=== PATIENT | female | born 1990 | race Caucasian/White ===

== ENCOUNTER 2020-05-31 16:56 | Inpatient (IN) | payer OTHER, SELFPAY ==
[2020-05-31] VITALS (42 sets, daily range): BP systolic 101–120; BP diastolic 66–95; PULSE 67–213; RESP 14–20; TEMP 36.5–36.8; O2SAT 97–100; BMI 37.7
[2020-05-31] MEDS: LACTATED RINGERS 1,000 ML 125 ML IV CONT (17:25)
--- NOTE | 2020-05-31 17:26 | LDADM ---
This patient, Yudelka Guy, was admitted to [facility] on 05/31/20 at 16:56. Plans for repeat section, pain management and were discussed with patient. Patient/family oriented to hospital policies and general routines including ID bracelet, bed and alarms, visiting hours, pain management, procedures, bathroom and other care routines, personal items, smoking policy, room service/diet and guest tray routines, infant security routines, and visiting hours. Patient/Family are encouraged to report perceived risks to care and to ask questions if they do not understand what they are told or what they should do. See OBIX for further documentation.
[2020-05-31 17:36] LABS: Basophils Percent Auto 0.3 % (0.2-1.2); Eosinophils Absolute Auto 0.2 K/mm3 (0-0.3); Hematocrit 36.6 % (37.0-47.0); Hemoglobin 12.2 g/dL (12.0-15.0); Immature Granulocyte Absolute 0.16 K/mm3 (0.00-0.031); Immature Granulocyte Percent A 1.8 % (0-0.5); Lymphocytes Absolute Auto 1.58 K/mm3 (0.9-3.2); Lymphocytes Percent Auto 17.8 % (18.3-44.2); Mean Corpuscular HGB Conc 33.3 g/dl (32-36); Mean Corpuscular Hemoglobin 29.3 pg (26-34); Mean Platelet Volume 9.6 fl (7.4-10.4); Monocytes Absolute Auto 0.7 K/mm3 (0.1-0.6); Monocytes Percent Auto 8.1 % (2.6-8.5); Neutrophils Absolute Auto 6.2 K/mm3 (1.3-6.7); Platelet Count Result 237 k/mm3 (150-375); Red Blood Count 4.16 M/mm3 (4.2-5.4); Red Cell Distribution Width 14.8 % (11.5-14.5); White Blood Count 8.9 K/mm3 (4.5-10.0)
--- NOTE | 2020-05-31 18:42 | WPDANESEPPF ---
Anes - Initial Pre Proc Eval Procedure: Operation Date: 06/02/20 12:00 Proposed Procedures p Repeat Low Transverse Section - Mark Cabrera MD Date/Time: 05/31/20 18:42 Surgeon: Mark Cabrera MD Pre Op Diagnosis: Patient Data Age: 30 Gender: F Height: 5 ft 8 in Weight: 112.5 kg Last Vital Signs Temp 36.7 C 05/31/20 17:57 Pulse 89 05/31/20 17:45 BP 113/73 05/31/20 17:45 Allergies Allergy/AdvReac Type Severity Reaction Status Date / Time No Known Allergies Allergy Verified 05/29/20 12:10 Home Medications Medication Instructions Recorded Confirmed Type PNV cmb#95-ferrous fumarate-FA 1 tablet PO DAILY 05/29/20 05/31/20 History [] Laboratory Tests 05/31/20 05/31/20 17:14 17:14 WBC 8.9 K/mm3 K/mm3 (4.5-10.0) RBC 4.16 M/mm3 L M/mm3 (4.2-5.4) Hgb 12.2 g/dL g/dL (12.0-15.0) Hct 36.6 % L % (37.0-47.0) MCV 88.0 fl fl (80-100) MCH 29.3 pg pg (26-34) MCHC 33.3 g/dl g/dl (32-36) RDW 14.8 % H % (11.5-14.5) Plt Count 237 k/mm3 k/mm3 (150-375) MPV 9.6 fl fl (7.4-10.4) Immature Gran % (Auto) 1.8 % H % (0-0.5) Neut % (Auto) 70.0 % % (45.5-73.1) Lymph % (Auto) 17.8 % L % (18.3-44.2) [place] % (Auto) 8.1 % % (2.6-8.5) Eos % (Auto) 2.0 % % (0-4.4) Baso % (Auto) 0.3 % % (0.2-1.2) Lymph # (Auto) 1.58 K/mm3 K/mm3 (0.9-3.2) [place] # (Auto) 0.7 K/mm3 H K/mm3 (0.1-0.6) Eos # (Auto) 0.2 K/mm3 K/mm3 (0-0.3) Baso # (Auto) 0.0 K/mm3 K/mm3 (0.0-0.1) Abs Immat Gran (auto) 0.16 K/mm3 H K/mm3 (0.00-0.031) Absolute Neuts (auto) 6.2 K/mm3 K/mm3 (1.3-6.7) Absolute Nucleated RBC 0.0 K/mm3 K/mm3 (0.0-0.012) Nucleated RBC % 0.0 % % (0.0-0.2) RPR Pending Patient hx anesthesia problems: none Family hx anesthesia problems: none [facility] Family History Family History Other No pertinent family history Social History Social History Smoking status: Never smoker Substance use: never Gender identity (if verbalized by the patient): Female Spiritual care concerns: No Anes - Eval Final PreProcedure Day of Procedure 05/31/20 18:42 Patient weight: obese Heart: regular rate and rhythm Lungs: clear to auscultation Airway: Mallampati scale class II Neurological: alert and oriented Last oral intake: >/= 8 hours ASA classification: II Emergent: no Anesthetic plan: proceed Anesthesia type and monitoring: regional spinal and standard monitoring Informed Consent: The patient's anesthetic plan and its attendant risks and benefits were discussed with the patient/family/POA. Questions were solicited and answers provided to the satisfaction of the patient/family/POA.
--- NOTE | 2020-05-31 18:58 | PM.IMHP ---
H&P: HPI History of Present Illness Date/Time: 05/31/20 18:58 Chief complaint: Narrative: Yudelka Guy is a 30 year old female, , presents for repeat at 39 weeks 1 day due to oligohydramnios macrosomia estimated weight 4400 g TAYLOR of 4 I explained her condition procedure risk involved risk of bleeding infection injury to bladder bowel baby pelvic vessels DVT pneumonia 1 infections endometritis UTI the risk of anesthesia patient understands accepts and agrees to proceed patient was scheduled for repeat on Friday but will be doing this this evening due to severe oligohydramnios Review of Systems Review of Systems: All systems reviewed & are unremarkable except as noted in HPI and below Constitutional: Constitutional: Reports no additional constitutional complaints Eyes: Eyes: Reports no additional eye complaints ENT: Reports system reviewed and no additional complaints, except as documented Cardiovascular: Cardiovascular: Reports no additional cardiovascular complaints Respiratory: Respiratory: Reports no additional respiratory complaints Gastrointestinal: Gastrointestinal: Reports no additional gastrointestinal complaints Genitourinary: Genitourinary: Reports no additional female genitourinary complaints Musculoskeletal: Musculoskeletal: Reports no additional musculoskeletal complaints Integumentary/Breasts: Skin/Breast: Reports system reviewed and no additional complaints, except as docu Neurologic: Reports system reviewed and no additional complaints, except as documented Psychiatric: Psychiatric: Reports no additional psychiatric complaints Endocrine: Endocrine: Reports no additional endocrine complaints Hematologic/Lymphatic: Hematologic/Lymphatic: Reports no additional hematologic/lymphatic complaints Allergic/Immunologic: Allergic/Immunologic: Reports no additional allergic/immunologic complaints PMFSH Past Medical History Medical History Anemia GERD (gastroesophageal reflux disease) Homozygous MTHFR mutation C677T Morbid obesity Surgical History Surgical History Delivery by section History of bunionectomy Previous section Family History Family History Other Breast cancer Other No pertinent family history Social History Social History Smoking status: Never smoker Second hand tobacco smoke exposure: No Alcohol intake: never Substance use: never Substance use type: does not use Living arrangements: with friend(s) Occupation/Education: unemployed Gender identity (if verbalized by the patient): Female Sexual Orientation (if Verbalized by the Patient): Straight or Heterosexual Spiritual care concerns: No Agree to blood products: Yes Meds Home Medications and Allergies Home Medications Medication Instructions Recorded Confirmed Type PNV cmb#95-ferrous fumarate-FA 1 tablet PO DAILY 05/29/20 05/31/20 History [] Allergies Allergy/AdvReac Type Severity Reaction Status Date / Time No Known Allergies Allergy Verified 05/29/20 12:10 Vital Signs Vital Signs - 24 hr 05/31/20 17:32 05/31/20 17:45 05/31/20 17:57 Temperature 98.1 F Pulse Rate 91 89 Blood Pressure 101/72 113/73 Exam Const: General: comfortable and no acute distress HENMT: Ears: TM's normal bilaterally Eyes: General: appearance normal, both eyes and all related structures Neck: Neck: no JVD Chest: Chest palpation & inspection: normal inspection of the chest Breast/axilla inspection: normal inspection of the breasts Breast/axilla palpation: normal palpation of the breasts Resp: Effort & Inspection: normal respiratory effort Auscultation: clear to auscultation bilaterally Cardio:
[2020-05-31] MEDS: ceFAZolin 2 GM/D5W 50 ML 2 GM/50 ML BAG IVPB (19:04)
--- NOTE | 2020-05-31 19:06 | WPDHPUPDATE1 ---
History and Physical Update Update Date/Time: 05/31/20 19:06 History and Physical has been reviewed, including an updated exam of the patient. There are NO changes in the patient's condition. Risks, benefits, and alternatives have been discussed and questions answered. Patient agrees to proceed with procedure. 30yo F, , presents for JAKE at 39 weeks 1 day here for repeat section due to previous section macrosomia with oligohydramnios
--- NOTE | 2020-05-31 19:07 | WPDOBADMIT ---
Obstetrics - Admit Note Admission Note: record reviewed. No pertinent additions to the history and/or any subsequent changes in the physical findings that are not consistent with the expected course of the were found. Additions to the history and/or subsequent changes in the physical findings follow. None. 30yo F, , presents for JAKE at 39 weeks 1 day here for repeat section due to previous section with oligohydramnios and macrosomia
[2020-05-31] MEDS: OXYTOCIN 10 UNITS/ML VIAL IM (19:30)
--- NOTE | 2020-05-31 20:06 | P.PCNOB_ITS ---
OB - Delivery Note Procedure Procedure: Procedures Operation Date: 05/31/20 18:55 repeat low transverse section with delivery of viable female and placenta Operation Date: 06/02/20 12:00 <No data on this case meets the specified criteria> events: Previous and Oligohydramnios Induction method: none Delivery monitor: external FHT Route of delivery: ( repeat low transverse section) Specimen: Yes ( placenta) Estimated blood loss (mL): 590 Anesthesia type: Spinal Disposition: floor Complications: none [place] Baby Date of : 05/31/20 Time of : 19:23 Weeks of gestation at delivery: 39 Infant gender: Female Weight (pounds): 8 Weight (ounces): 12 presentation: vertex position: Left Occiput Transverse Placenta delivery description: Manual Removal and Normal Configuration cord vessel description: 3 Vessels score one minute: 8 score five minutes: 9
--- NOTE | 2020-05-31 20:09 | P.OP_ITS ---
Procedure Note - Detailed Date of procedure: 05/31/20 Pre-op diagnosis: term Previous section desires repeat section Oligohydramnios macrosomia Maternal obesity homozygous MTHFR Post-op diagnosis: same ( delivered viable female infant) Procedure performed: repeat low transverse section with delivery of viable female and placenta Description of procedure: informed consent was obtained the patient was taken to the operating suite where she was placed in the upright position and a spinal anesthetic was administered following this she was placed in the supine position and a Carter catheter was inserted and then her abdomen was then prepped and then she was draped in the usual sterile fashion. A time-out was performed adequate anesthesia was identified A Pfannenstiel incision was made to the skin in the abdomen was opened in layers using electrocautery fascia was entered bilaterally undermined inferiorly and superiorly rectus muscle the midline peritoneum was entered with electrocautery. Transverse incision was then made to the uterus and the membranes were ruptured using a Peon clamp and the uterus incision was extended bilaterally digitally the vertex was then delivered via the abdominal incision where the nose and throat were bulb suction the cord was clamped and cut and the infant was handed to the nursery nurse in attendance scores 8 and 9 at 1 and 5 minutes weighing 8 lb 12 oz taken to the nursery in stable condition. The placenta cord gases cord blood was obtained and then the placenta was delivered intact with a three-vessel cord the uterus contracted well patellas given intravenously and 10 units given in to the myometrium. The uterus was externalized blood clots membranes removed from the intrauterine cavity the. The uterine incision was then repaired 2 layers with 0 Vicryl in a running interlocking fashion the 2nd being an imbricating stitch hemostasis excellent irrigation was then performed blood clots removed from the cul-de-sac both lateral gutters and the uterus was then returned to the peritoneal cavity. The anterior peritoneum and rectus muscles reapposed in a running fashion with 0 Vicryl suture. The fascia was closed with 2. Quill S RS system bilaterally subcutaneous tissues reapproximated with 3 0 plain gut and the skin was closed with absorbable malou under the skin and Dermabond to the skin a sterile dressing was applied the patient was taken to the recovery room in stable condition counts correct complications none mom and baby in stable condition sonia questionably dictating thank you Anesthesia: spinal ( Duramorph) Surgeon: Sonia Cabrera MD Adaptive Physical Educator: assistant professor surgical technology x2 Estimated blood loss (mL): 590 IV fluids (mL): 1,000 Urine output (mL): 200 Drains: No Packing: No Pathology: yes ( placenta) Complications: None Condition: stable Disposition: floor Findings: viable female infant delivered at 7:23 p.m. Apgars 8 and 9 at 1 and 5 minutes weighing 8 lb 12 oz spontaneous respirations and cry taken to the nursery in stable condition no gross abnormalities on initial examination Placenta delivered intact three-vessel cord Breast and bottle feeding Cloth Neutralizer Dr. Cui Counts correct VTE prevention SCDs Antibiotic prophylaxis Ancef 3 g Patient taken to recovery room in stable condition
--- NOTE | 2020-05-31 20:22 | PM.OBDSVD ---
DS: Admitting Diagnosis Admitting Diagnosis Admitting Diagnosis: term previous section desires repeat oligohydramnios macrosomia morbid obesity homozygous MTHFR mutation DS: Discharge Diagnosis Discharge Diagnosis (1) GERD (gastroesophageal reflux disease): Code(s): K21.9 - Gastro-esophageal reflux disease without esophagitis Status: Acute (2) Anemia: Code(s): D64.9 - Anemia, unspecified Status: Acute (3) Oligohydramnios: Code(s): O41.00X0 - Oligohydramnios, unspecified trimester, not applicable or unspecified Status: Acute (4) Delivery by section: Status: Acute (5) Morbid obesity: Code(s): E66.01 - Morbid (severe) obesity due to excess calories Status: Acute (6) Homozygous MTHFR mutation C677T: Code(s): E72.12 - Methylenetetrahydrofolate reductase deficiency Status: Acute (7) Term delivered: Code(s): O80 - Encounter for full-term uncomplicated delivery Status: Acute OB - DS: Summary Hospital Course Time spent discussing smoking cessation with patient: 3 to 10 minutes OB Procedures : Ultrasound OB Procedures Intrapartum: low cervical, transverse OB Procedures: : None Peripartum Data Delivery Method: Section Laceration description: None Episiotomy description: None Procedures: Procedures Operation Date: 05/31/20 18:55 repeat low-transverse section with delivery of viable female infant and placenta under spinal anesthesia Operation Date: 06/02/20 12:00 <No data on this case meets the specified criteria> complications: none [place] 1: Gender: Female Disposition of : home Status at Discharge Functional status at discharge: independent ambulation Overall status at discharge: patient is back to baseline Time Spent with Patient Time attestation: Total time spent providing and/or coordinating discharge services: Time spent: Less than 30 minutes Exam Const: General: comfortable and no acute distress Orientation/consciousness: patient oriented x3 Limitations: no limitations Chest: Breast/axilla inspection: normal inspection of the breasts Breast/axilla palpation: normal palpation of the breasts Resp: Effort & Inspection: normal respiratory effort Auscultation: clear to auscultation bilaterally Cardio: Rate: regular rate GI: Inspection: normal to inspection and incision ( clean dry intact dressing) GI Palp: Yes Soft to palpation Percussion: Yes normal to percussion Auscultation: normal bowel sounds : General: Yes bladder normal to inspection and Yes no CVA tenderness Psych: Appearance: grossly normal Mental Status: mental status grossly normal Affect: normal affect Attitude: cooperative Thought content: Yes Normal thought content present Judgement: Good judgement present (Psych) DS: Data Data Completed and Pending Labs on day of discharge: Labs from last 24 hours 05/31/20 05/31/20 05/31/20 17:14 17:14 17:14 WBC 8.9 RBC 4.16 L Hgb 12.2 Hct 36.6 L MCV 88.0 MCH 29.3 MCHC 33.3 RDW 14.8 H Plt Count 237 MPV 9.6 Immature Gran % (Auto) 1.8 H Neut % (Auto) 70.0 Lymph % (Auto) 17.8 L [place] % (Auto) 8.1 Eos % (Auto) 2.0 Baso % (Auto) 0.3 Lymph # (Auto) 1.58 [place] # (Auto) 0.7 H Eos # (Auto) 0.2 Baso # (Auto) 0.0 Abs Immat Gran (auto) 0.16 H Absolute Neuts (auto) 6.2 Absolute Nucleated RBC 0.0 Nucleated RBC % 0.0 RPR Pending Blood Type O Positive Antibody Screen Negative Discharge Plan Discharge Attending physician on discharge: Mark Cabrera Discharging Clinician: Mark Cabrera Anticipated Discharge Date/Time: 06/03/20 20:20 Patient Disposition: Home, Self-Care Activity: may shower, no straining, no driving and may drive after 2 weeks Diet: as tolera
--- NOTE | 2020-05-31 22:14 | OBPPTRN ---
Patient transferred to post room # via ( ). Support person present. Oriented to unit, room, information board, rooming in, admission packet and security measures. Patient verbalizes understanding.
--- NOTE | 2020-05-31 22:14 | OBPPTRN ---
Patient transferred to post room #290 via stretcher. Support person present. Oriented to unit, room, information board, rooming in, admission packet and security measures. Patient verbalizes understanding. Infant with patient.
[2020-05-31] MEDS: OXYTOCIN 30 UNITS/NS 500 ML 30 UNITS/500 ML BAG 125 UNITS IV CONT (22:15)
[2020-05-31] MEDS: KETOROLAC 30 MG/ML VIAL (*BKC) IV PUSH (23:13)
[2020-06-01] VITALS (7 sets, daily range): BP systolic 99–124; BP diastolic 60–79; PULSE 74–92; RESP 16–20; TEMP 36.7–37.4; O2SAT 98–99
--- NOTE | 2020-06-01 05:40 | PC.NURSE ---
10 units of intrauterine pitocin adminsiterd by dr stone during c/s. ancef 2g administered at 1904 by iris dimas crna.
[2020-06-01 05:47] LABS: Basophils Percent Auto 0.3 % (0.2-1.2); Eosinophils Absolute Auto 0.1 K/mm3 (0-0.3); Eosinophils Percent Auto 1.1 % (0-4.4); Hemoglobin 10.5 g/dL (12.0-15.0); Immature Granulocyte Absolute 0.16 K/mm3 (0.00-0.031); Immature Granulocyte Percent A 1.3 % (0-0.5); Lymphocytes Absolute Auto 1.59 K/mm3 (0.9-3.2); Mean Corpuscular HGB Conc 32.8 g/dl (32-36); Mean Corpuscular Hemoglobin 29.2 pg (26-34); Mean Corpuscular Volume 89.1 fl (80-100); Mean Platelet Volume 9.8 fl (7.4-10.4); Monocytes Absolute Auto 0.8 K/mm3 (0.1-0.6); Monocytes Percent Auto 6.5 % (2.6-8.5); Neutrophils Absolute Auto 9.5 K/mm3 (1.3-6.7); Neutrophils Percent Auto 77.8 % (45.5-73.1); Platelet Count Result 179 k/mm3 (150-375); Red Blood Count 3.59 M/mm3 (4.2-5.4); White Blood Count 12.2 K/mm3 (4.5-10.0)
[2020-06-01] MEDS: KETOROLAC 30 MG/ML VIAL (*BKC) IV PUSH ×2 (07:02→14:04)
[2020-06-01 07:28] LABS: Rapid Plasma Reagin Non-Reactive (NonReactive)
--- NOTE | 2020-06-01 09:19 | WPDANLDPN2 ---
Anes-Prog Note L&D Date/Time: 06/01/20 09:19 Comfortable throughout: section Neuraxial method: spinal Epidural/Spinal procedure site: clean & non-tender Neuro status: Neuro function grossly intact. Cardiovascular status: normal Respiratory status: normal Airway patency: baseline Mental status: baseline Post-Op hydration status: normal Vital Signs: Last Vital Signs Temp 36.7 C 06/01/20 04:30 Pulse 86 06/01/20 04:30 Resp 16 06/01/20 04:30 BP 108/72 06/01/20 04:30 Pulse Ox 98 06/01/20 04:30 Pain score (VAS): 0 I/O: Intake & Output 05/31/20 06/01/20 06/01/20 23:59 07:59 15:59 Intake Total 50 500 Output Total 600 200 Balance -550 300 Post-procedural complaints: none Patient feedback: Patient satisfied with anesthetic care.
--- NOTE | 2020-06-01 09:20 | WPDANLDNPN2 ---
Anes-Prog Note L&D-Neuraxial Date/Time: 06/01/20 09:20 Neuraxial medications: intrathecal PF morphine Opiod-related complaints: none Patient feedback: Patient satisfied with post-operative pain management.
[2020-06-01] MEDS: MULTIVIT/MIN/PREN/FOL AC/IRON TABLET 1 TAB PO (09:25)
[2020-06-01] MEDS: DOCUSATE SODIUM 100 MG CAPSULE PO ×2 (09:25→17:37)
--- NOTE | 2020-06-01 11:45 | PC.NURSE ---
Mother requested assist with pumping. Reviewed instructions on breast pump care and usage, pumping schedule, nipple care, and collection and storage of breast milk. Encouraged [id number], breast massage and manual expression to stimulate supply. Assessed patient for correct flange size, placement and draw. Patient verbalizes and demonstrates understanding of instructions. Mother is able to pump without difficulties or discomfort.
--- NOTE | 2020-06-01 16:23 | PCCCNOTE ---
Care Coordination met with pt. and FOB this afternoon to discuss discharge planning. Pt.'s current discharge plan is to return home with MARI and his cousin. Pt. states that FOReji is supportive and that they have local family support. Pt. has everything she needs to safely bring baby home. She has a car seat in the room. Pt. will breast feed with baby and nursing is assisting with finding pt. a breast pump. She has started WIC application. Pt. states that they have been having difficulty finding transportation and this resulted in pt. having limited care. MARI's cousin drove them to the hospital but pt. is unsure if he will pick them up. Care Coordination supplied pt. with a list of resources for new parents and transportation resources. Pt. and FOB had no other concerns about bringing baby home. Pt. states that she has an eight year old daughter who lives with her ex in [place]. She also states she has no prior DCFS cases. Care Coordination submitted an electric report to DCFS recommending pt. receive in-home services. Pt.'s intake number is [id number]. No further need for Care Coordination services at this time.
[2020-06-01] MEDS: HYDROcodone/acetaminophen (*CRX) 5-325 MG TABLET 1 TAB PO ×2 (18:44→21:58)
[2020-06-01] MEDS: IBUPROFEN 600 MG TABLET PO (21:58)
[2020-06-02] MEDS: IBUPROFEN 600 MG TABLET PO ×3 (05:39→19:45)
[2020-06-02 08:20] VITALS: BP 103/63; PULSE 83; RESP 18; TEMP 37.4; O2SAT 99
[2020-06-02] MEDS: MULTIVIT/MIN/PREN/FOL AC/IRON TABLET 1 TAB PO (08:32)
[2020-06-02] MEDS: DOCUSATE SODIUM 100 MG CAPSULE PO ×2 (08:32→16:55)
[2020-06-02] MEDS: HYDROcodone/acetaminophen (*CRX) 5-325 MG TABLET 1 TAB PO ×2 (08:32→19:45)
[2020-06-02] MEDS: SIMETHICONE 80 MG TAB.CHEW PO ×3 (08:33→19:45)
--- NOTE | 2020-06-02 10:37 | PM.OBPNVD ---
OB - PN: Subj Subjective Date/time seen: 06/02/20 10:37 Interval history: 30-year-old female status post repeat of a viable female infant stable Patient comments: no complaints, pain well controlled, tolerating diet and flatus present baby status: doing well and bottle feeding well Mathias feeding status: exclusively bottle feeding OB - PN: Obj Data Labs CBC & Chem 7: 06/01/20 04:31 OB - PN A/P Assessment and Plan (1) Term delivered: Code(s): O80 - Encounter for full-term uncomplicated delivery Status: Acute (2) Delivery by section: Status: Acute Assessment and Plan: stable (3) Morbid obesity: Code(s): E66.01 - Morbid (severe) obesity due to excess calories Status: Acute (4) Homozygous MTHFR mutation C677T: Code(s): E72.12 - Methylenetetrahydrofolate reductase deficiency Status: Acute Time Spent With Patient Time: Total time spent is greater than 50% in coordination of care (as documented) at patient's floor/unit and/or counseling patient: discharged to home in the morning return to the office in 3 weeks using control pills SLYND Review of Systems Review of Systems: All systems reviewed & are unremarkable except as noted in HPI and below Constitutional: Constitutional: Reports no additional constitutional complaints Eyes: Eyes: Reports no additional eye complaints ENT: Reports system reviewed and no additional complaints, except as documented Cardiovascular: Cardiovascular: Reports no additional cardiovascular complaints Respiratory: Respiratory: Reports no additional respiratory complaints Gastrointestinal: Gastrointestinal: Reports no additional gastrointestinal complaints Genitourinary: Genitourinary: Reports no additional female genitourinary complaints Musculoskeletal: Musculoskeletal: Reports no additional musculoskeletal complaints Integumentary/Breasts: Skin/Breast: Reports system reviewed and no additional complaints, except as docu Neurologic: Reports system reviewed and no additional complaints, except as documented Psychiatric: Psychiatric: Reports no additional psychiatric complaints Endocrine: Endocrine: Reports no additional endocrine complaints Hematologic/Lymphatic: Hematologic/Lymphatic: Reports no additional hematologic/lymphatic complaints Allergic/Immunologic: Allergic/Immunologic: Reports no additional allergic/immunologic complaints Exam Const: General: cooperative, comfortable, no acute distress, alert, awake and Physically active Nutritional Appearance: obese morbidly obese Orientation/consciousness: patient oriented x3 Limitations: no limitations HENMT: Head: normal to inspection Eyes: General: appearance normal, both eyes and all related structures Neck: Neck: normal visual inspection Chest: Chest palpation & inspection: normal inspection of the chest Resp: Effort & Inspection: normal respiratory effort Cardio: Jugular venous distension: no JVD Rate: regular rate Rhythm: regular rhythm GI: Inspection: normal to inspection, incision ( clean dry intact dressing applied), Pannus present and obesity GI Palp: Yes Soft to palpation Percussion: Yes normal to percussion : General: Yes no CVA tenderness External Female Exam: normal external appearance Back/Spine/Pelvis: Back: no CVA tenderness Cervical Spine: normal cervical lordosis Thoracic/Lumbar Spine: thoracic and lumbar spine normal to inspection Skin: General skin exam: normal color Neuro: General: oriented to person and patient oriented x3 Extrem: General: normal to inspection and full ROM Psych: Appearance: grossly normal Mental Status: mental status grossly normal Speech and movement: Normal speech and movement present Affect: normal affect Attitude: cooperative Thought process: Normal thought process present Thought content: Yes Normal thought content present Insight: Good ins
[2020-06-02 19:45] VITALS: BP 113/71; PULSE 101; RESP 18; TEMP 36.6; O2SAT 100
--- NOTE | 2020-06-02 20:00 | PC.NURSE ---
Patient to view the discharge video Mother & Baby Care, The First Two Weeks online. Patient was given the opportunity and encouraged to ask questions. Patient verbalized understanding of information shared and has been given the mother/baby guide for home reference.
[2020-06-03 08:00] VITALS: BP 127/79; PULSE 88; RESP 20; TEMP 36.5
[2020-06-03] MEDS: MULTIVIT/MIN/PREN/FOL AC/IRON TABLET 1 TAB PO (08:14)
[2020-06-03] MEDS: IBUPROFEN 600 MG TABLET PO (08:14)
[2020-06-03] MEDS: DOCUSATE SODIUM 100 MG CAPSULE PO (08:14)
[2020-06-03] MEDS: SIMETHICONE 80 MG TAB.CHEW PO (08:15)
[2020-06-03] MEDS: HYDROcodone/acetaminophen (*CRX) 5-325 MG TABLET 1 TAB PO (08:15)
--- NOTE | 2020-06-03 09:54 | PC.NURSE ---
Self care and infant care discharge instructions given to mother including follow up visit date and time. No questions voiced per pt. FOB at side. Very pleasant and anxious for discharge.
--- NOTE | 2020-06-03 11:42 | WPDANLDPN2 ---
Anes-Prog Note L&D Date/Time: 06/03/20 11:42 Comfortable throughout: section Neuraxial method: spinal Epidural/Spinal procedure site: clean & non-tender Neuro status: Neuro function grossly intact. Cardiovascular status: normal Respiratory status: normal Airway patency: baseline Mental status: baseline Post-Op hydration status: normal Vital Signs: Last Vital Signs Temp 36.5 C 06/03/20 08:00 Pulse 88 06/03/20 08:00 Resp 20 06/03/20 08:00 BP 127/79 06/03/20 08:00 Pulse Ox 100 06/02/20 19:45 Pain score (VAS): 0 Post-procedural complaints: none Patient feedback: Patient satisfied with anesthetic care.
--- NOTE | 2020-06-03 11:42 | WPDANLDNPN2 ---
Anes-Prog Note L&D-Neuraxial Date/Time: 06/03/20 11:42 Neuraxial medications: intrathecal PF morphine Opiod-related complaints: none Patient feedback: Patient satisfied with post-operative pain management.
[2020-06-05 10:14] VITALS: BP 117/86; PULSE 85; RESP 18; TEMP 37.6; O2SAT 98
== END 2020-06-03 15:19 | disposition home or self-care (01) | DRG 540 ==
LOC: ANHOBPP 20:25 → ANHOB2 22:19
PROVIDERS: Admitting Provider Obstetrics & Gynecology; Visit Provider Obstetrics & Gynecology
PROC: 10D00Z1 Extraction of Products of Conception, Low, Open Approach (ICD-10-PCS; CPT 59514; principal; 2020-05-31 18:55)
DX: O34.211 Maternal care for low transverse scar from previous cesarean delivery (principal); O41.03X0 Oligohydramnios, third trimester, not applicable or unspecified; O36.63X0 Maternal care for excessive fetal growth, third trimester, not applicable or unspecified; O99.284 Endocrine, nutritional and metabolic diseases complicating childbirth; E72.12 Methylenetetrahydrofolate reductase deficiency; O99.214 Obesity complicating childbirth; E66.01 Morbid (severe) obesity due to excess calories; O99.02 Anemia complicating childbirth; Z3A.39 39 weeks gestation of pregnancy; Z37.0 Single live birth; K21.9 Gastro-esophageal reflux disease without esophagitis; O99.62 Diseases of the digestive system complicating childbirth
CPT/HCPCS: 36415; 85025; 86592; 86850; 86900; 86901; 88307; A9270; J0131; J0690; J1885; J2274; J2370; J2405; J2590; J7120